=== PATIENT | female | born 1945 | race African-American/Black ===

== ENCOUNTER 2018-06-07 21:28 | Emergency (ER) | payer OTHER ==
[2018-06-07 21:39] VITALS: BP 166/83; PULSE 99; TEMP 98; BMI 19.3
[2018-06-07] MEDS ORDERED: DIPHTH,PERTUSS(ACELL),TET 0.5 ML DISP.SYRIN IM ONE (21:39)
--- NOTE | 2018-06-07 21:46 | PDOC ---
Rapid Medical Evaluation Chief Complaint: Bite Time Seen by Provider: 06/07/18 21:38 Medical Evaluation: Allergies Allergy/AdvReac Type Severity Reaction Status Date / Time No Known Allergies Allergy Verified 06/07/18 21:39 Vital Signs Temp Pulse Resp BP Pulse Ox 98.0 F 99 H 18 166/83 96 06/07/18 21:31 06/07/18 21:31 06/07/18 21:31 06/07/18 21:31 06/07/18 21:31 06/07/18 21:41 I have performed a brief in-person evaluation of this patient. The patient presents with a chief complaint of: Was attacked by unknown dog on street who was being walked, but unable to locate. STates washed wound and came for evaluation. Pertinent physical exam findings: Puncture wound to right forearm , mild contusion/ FROM to arm and hand I have ordered the following: Boostrix/ Rabies Protocol needs initiated The patient will proceed to the ED for further evaluation 06/07/18 21:44 Discharge Disposition - Diagnosis Dog bite of arm - Referrals - Patient Instructions - Post Discharge Activity
[2018-06-07] MEDS ORDERED: RABIES IMMUNE GLOBULIN 300 UNITS/1 ML VIAL IM ONE (21:51)
[2018-06-07] MEDS ORDERED: RABIES VACCINE (PCEC)/PF 2.5 UNIT/VIAL IM ONE (21:51)
[2018-06-07] MEDS ORDERED: RABIES IMMUNE GLOBULIN 300 UNITS/1 ML VIAL ONE (22:01)
--- NOTE | 2018-06-07 22:21 | PDOC ---
History of Present Illness - General Chief Complaint: Bite Stated Complaint: DOG BITE Time Seen by Provider: 06/07/18 21:38 - History of Present Illness Initial Comments: 72-year-old female without comorbidities past history of colon cancer status post colectomy number of years ago presents for evaluation after a dog bite by an unknown dog in her left upper extremity. 06/07/18 22:13 Past History - Past Medical History Allergies/Adverse Reactions: Allergies Allergy/AdvReac Type Severity Reaction Status Date / Time No Known Allergies Allergy Verified 06/07/18 21:39 Home Medications: Ambulatory Orders NK [No Known Home Medication] 06/07/18 COPD: No - Suicide/Smoking/Psychosocial Hx Smoking History: Never smoked Review of Systems - Review of Systems Musculoskeletal: Yes: See HPI *Physical Exam - Vital Signs Last Vital Signs Temp Pulse Resp BP Pulse Ox 98.0 F 99 H 18 166/83 96 06/07/18 21:31 06/07/18 21:31 06/07/18 21:31 06/07/18 21:31 06/07/18 21:31 - Physical Exam Comments: HEAD: NC/AT EYES: Conjuntiva clear MS: Full ROM in all joints without edema NEUROLOGIC: No gross sensory or motor deficits, NVID SKIN: Normal color and temperature no lesions or rashes There is a small subcentimeter puncture danna on the volar aspect of the forearm without gross sensorimotor deficits and normal surrounding skin color and temperature 06/07/18 22:14 ED Treatment Course - Medications Given in the ED: ED Medications Discontinued Medications Generic Name Dose Route Start Last Admin Trade Name Freq PRN Reason Stop Dose Admin Diphtheria/Tetanus/Acell Pertussis 0.5 ml 06/07/18 21:39 06/07/18 21:57 Boostrix - IM 06/07/18 21:40 0.5 ml .ONCE ONE Administration Rabies Vaccine 2.5 unit 06/07/18 21:51 06/07/18 21:58 Rabavert Rabies Vaccine IM 06/07/18 21:52 2.5 unit .ONCE ONE Administration Medical Decision Making - Medical Decision Making Was clean with soap and water copiously washed and a dry sterile dressing was placed 06/07/18 22:21 *DC/Admit/Observation/Transfer Diagnosis at time of Disposition: Dog bite of arm - Discharge Dispostion Disposition: HOME Condition at time of disposition: Stable Decision to Admit order: No - Referrals Referrals: Jordan Fernandez MD [Staff Physician] - - Patient Instructions Printed Discharge Instructions: DI for Animal Bites Additional Instructions: He must return to the emergency room in 3 days, 7 days and again in 14 days for rabies vaccinations. The dates are as follows: 06/10/18 06/14/18 06/21/18 Also follow up with your primary care doctore in 1-2 days for futher evaluation and treatment options. - Post Discharge Activity
== END 2018-06-07 23:10 | disposition home or self-care (01) ==
LOC: JERFT 21:28
PROC: 3E0234Z Introduction of Serum, Toxoid and Vaccine into Muscle, Percutaneous Approach (ICD-10-PCS; principal; 2018-06-07)
PROC: 3E0234Z Introduction of Serum, Toxoid and Vaccine into Muscle, Percutaneous Approach (ICD-10-PCS; 2018-06-07)
PROC: 3E0234Z Introduction of Serum, Toxoid and Vaccine into Muscle, Percutaneous Approach (ICD-10-PCS; 2018-06-07)
DX: S51.851A Open bite of right forearm, initial encounter (principal); W54.0XXA Bitten by dog, initial encounter; Y93.89 Activity, other specified; Y92.89 Other specified places as the place of occurrence of the external cause; Y99.8 Other external cause status
CPT/HCPCS: 90375; 90471; 90675; 90715; 96372; 99281-25

== ENCOUNTER 2018-06-10 13:09 | Emergency (ER) | payer OTHER ==
[2018-06-10 13:22] VITALS: BP 140/72; PULSE 66; TEMP 98.7; BMI 18.6
[2018-06-10] MEDS ORDERED: RABIES VACCINE (PCEC)/PF 2.5 UNIT/VIAL IM ONE (14:16)
--- NOTE | 2018-06-10 14:28 | PDOC ---
History of Present Illness - General Chief Complaint: Revisit,Rabies Injection Stated Complaint: REVISIT, DOG BITE Time Seen by Provider: 06/10/18 13:40 History Source: Patient Exam Limitations: No Limitations - History of Present Illness Initial Comments: 06/10/18 14:26 pt here for second rabies vaccine. see here 06/07 for dog bite right forearm. pt states the bite is healing well no redness or drainage. Past History - Past Medical History Allergies/Adverse Reactions: Allergies Allergy/AdvReac Type Severity Reaction Status Date / Time No Known Allergies Allergy Verified 06/10/18 13:16 Home Medications: Ambulatory Orders Amox-Tr/K Cl [Augmentin - 875Mg Tablet] 1 tab PO BID #20 tablet 06/07/18 COPD: No - Suicide/Smoking/Psychosocial Hx Smoking History: Never smoked Information on smoking cessation initiated: No Hx Alcohol Use: No Drug/Substance Use Hx: No Substance Use Type: None *Physical Exam - Vital Signs Last Vital Signs Temp Pulse Resp BP Pulse Ox 98.7 F 66 18 140/72 100 06/10/18 13:11 06/10/18 13:11 06/10/18 13:11 06/10/18 13:11 06/10/18 13:11 - Physical Exam General Appearance: Yes: Nourished, Appropriately Dressed HEENT: positive: EOMI, CHECO Musculoskeletal: positive: Normal Inspection Extremity: positive: Normal Capillary Refill, Normal Inspection, Normal Range of Motion, Other (right forearm with (2) [id number] wounds superficial bites, healing well no redness or drainage ) ED Treatment Course - Medications Given in the ED: ED Medications Discontinued Medications Generic Name Dose Route Start Last Admin Trade Name Lila PRN Reason Stop Dose Admin Rabies Vaccine 2.5 unit 06/10/18 14:16 06/10/18 14:23 Rabavert Rabies Vaccine IM 06/10/18 14:17 2.5 unit .ONCE ONE Administration Medical Decision Making - Medical Decision Making 06/10/18 14:37 cc: dog bite wound to right forearm wound clean and dry will give second rabies vaccine dc inst discussed all questions asked and answered *DC/Admit/Observation/Transfer Diagnosis at time of Disposition: Rabies, need for prophylactic vaccination against - Discharge Dispostion Disposition: HOME Condition at time of disposition: Good - Referrals - Patient Instructions Printed Discharge Instructions: DI for Rabies Vaccine Additional Instructions: wash wound twice a day with antibacterial soap and water apply bacitracin once a day to the bite return as scheduled for rabies vaccine - Post Discharge Activity
== END 2018-06-10 14:45 | disposition home or self-care (01) ==
LOC: JERFT 13:09
PROC: 3E0234Z Introduction of Serum, Toxoid and Vaccine into Muscle, Percutaneous Approach (ICD-10-PCS; principal; 2018-06-10)
DX: Z20.3 Contact with and (suspected) exposure to rabies (principal); S51.851D Open bite of right forearm, subsequent encounter; W54.0XXD Bitten by dog, subsequent encounter
CPT/HCPCS: 90675; 99281-25

== ENCOUNTER 2018-10-07 07:01 | Observation (INO) | payer OTHER ==
--- NOTE | 2018-10-07 07:18 | PDOC ---
History of Present Illness - General Chief Complaint: Syncope/Near Syncope Stated Complaint: SYNCOPE Time Seen by Provider: 10/07/18 07:14 - History of Present Illness Initial Comments: 10/07/18 07:17 72 yo F with h/o colon ca. s/p colectomy (2001) BIBEMS w/ syncope. 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 States that she was on ground for minutes, uinconsious and crawled to couch and was able to ambulate afterwords. Patient states that she awoke in puddle of urine, and felt extremely weak following event. Denies h/o similar presentation or prior fainting spell. States that she has had frequent BM within past 24 hours, with absent BPR. Also endorses 1 month of irritable bowel/GI upset. Denies abdominal pain, but reports increased bowel activity. Evaluated by GI one month LINK TRAINER, and told she had consitpation. Has been taking Colace. Last colonscopy x 2 years ago, unremarkable. Does not recall head trauma, denies neck pain, back pain. Denies AC. Patient lives at home alone. Patient denies TAYLOR, vision change, palpitations, cough, wheezing, orthopena, PND , leg swelling/pain, N/V, F,C, CP, SOB, urinary complaints, hematuria, BPR, abdominal pain, diarrhea, constipation, sensory changes. PMHx: as noted above. Denies h/o ACS/IA, stent placement, CABG, abnml stress testing. ROS: as noted SHx: Denies Etoh, IVDA, tobacco use Allergies: NKDA Past History - Past Medical History Allergies/Adverse Reactions: Allergies Allergy/AdvReac Type Severity Reaction Status Date / Time No Known Allergies Allergy Verified 10/07/18 07:07 Home Medications: Ambulatory Orders NK [No Known Home Medication] 10/07/18 COPD: No - Suicide/Smoking/Psychosocial Hx Smoking History: Never smoked Have you smoked in the past 12 months: No Information on smoking cessation initiated: No Hx Alcohol Use: No Drug/Substance Use Hx: No Substance Use Type: None Review of Systems - Review of Systems Comments:: 10/07/18 07:18 GENERAL/CONSTITUTIONAL: No fever or chills. No weakness. HEAD, EYES, EARS, NOSE AND THROAT: No change in vision. No ear pain or discharge. No sore throat. CARDIOVASCULAR: No chest pain or shortness of breath RESPIRATORY: No cough, wheezing, or hemoptysis. GASTROINTESTINAL: No nausea, vomiting, diarrhea or constipation. GENITOURINARY: No dysuria, frequency, or change in urination. MUSCULOSKELETAL: No joint or muscle swelling or pain. No neck or back pain. SKIN: No rash NEUROLOGIC: + Lightheadedness. No headache, vertigo, or change in strength/ sensation. ENDOCRINE: No increased thirst. No abnormal weight change HEMATOLOGIC/LYMPHATIC: No anemia, easy bleeding, or history of blood clots. ALLERGIC/IMMUNOLOGIC: No hives or skin allergy. *Physical Exam - Vital Signs Last Vital Signs Temp Pulse Resp BP Pulse Ox 98.2 F 69 16 117/73 99 10/07/18 07:04 10/07/18 07:04 10/07/18 07:04 10/07/18 07:04 10/07/18 07:04 - Physical Exam Comments: 10/07/18 07:18 GENERAL: Awake, alert, and fully oriented, in no acute distress HEAD: No signs of trauma, normocephalic, atraumatic EYES: PERRLA, EOMI, sclera anicteric, conjunctiva clear ENT: + Dry mucous membranes. Auricles normal inspection, hearing grossly normal , nares patent, oropharynx clear without exudates. NECK: Normal ROM, supple, no lymphadenopathy, JVD, or masses LUNGS: No distress, speaks full sentences, clear to auscultation bilaterally HEART: Regular rate and rhythm, normal S1 and S2, no murmurs, rubs or gallops, peripheral pulses normal and equal bilaterally. ABDOMEN: Soft, nontender, normoactive bowel sounds. No guarding, no rebound. No masses EXTREMITIES : Normal inspection, Normal range of motion, no edema. No clubbing or cyanosis. NEUROLOGICAL: Cranial nerves II through XII grossly intact. Normal speech, normal gait, no focal sensorimotor deficits. Nml YANY. SKIN: Pale appearing. Warm, Dry, normal turgor, no rashes or lesions noted Moderate Sedation - Procedure Monitoring Vital Signs: Procedure Monitoring Vital Signs Temperature 98.2 F 10/07/18 07:04 Pulse Rate 69 10/07/18 07:04 Respiratory Rate 16 10/07/18 07:04 Blood Pressure 117/73 10/07/18 07:04 O2 Sat by Pulse Oximetry (%) 99 10/07/18 07:04 Heart Score/ECG Review - History History: Slightly suspicious - Electrocardiogram EKG: Normal - Age Age: >/= 65 - Risk Factors Risk Factors Heart Score: Yes Positive family hx of cardiac disease Based on the list above the patient has:: 1-2 risk factors - Troponin Troponin: </= normal limit - Score Heart Score - Total: 3 ED Treatment Course - LABORATORY CBC & Chemistry Diagram: 10/07/18 07:35 10/07/18 07:35 Medical Decision Making - Medical Decision Making 10/07/18 07:58 72 yo F with h/o colon ca. 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 Vitals wnl, AF , A&Ox3, GCS 15. Physical exam notable for pale appearing, and dry mucous membranes. CTH r/o hemorrhage, hemaotma, skull fracture, mass effect. Possible syncope vs. seizure/postictal state. Will assess for VBI/TIA, cardiac dysarrythmias, dehydration, hypoglycemia, electrolyte abnml, metabolic and toxic derangements, acid-base disturbances, infection, malignancy. Will provide adequate IV fluid resuscitation. 10/07/18 08:01 ED Course: CTH, NS 1 L 10/07/18 08:03 10/07/18 08:30 EKG: NSR with absent LEAH, STD. Normal interval duration and axis. Nml R wave progression. Neg Q waves. 10/07/18 08:53 CTH: Unremarkable CBC,CMP: Unremarkable Trop: Neg 10/07/18 11:13 Patient endorsed to Medicine. Admitted to medicine/Dr. Simmons. *DC/Admit/Observation/Transfer Diagnosis at time of Disposition: Syncope and collapse - Discharge Dispostion Condition at time of disposition: Stable Decision to Admit order: Yes - Referrals - Patient Instructions Printed Discharge Instructions: DI for Syncope in Adults (Fainting) - Post Discharge Activity
--- NOTE | 2018-10-07 07:50 | PDOC ---
Attending Attestation - Resident Resident Name: Jayson Cobb - ED Attending Attestation I have performed the following: I have examined & evaluated the patient, The case was reviewed & discussed with the resident, I agree w/resident's findings & plan, Exceptions are as noted - HPI HPI: 10/07/18 09:48 Ms Curtis is a 73 yo F who presents to the ER with a complaint of syncopal event Pt has a history only significant for colon cancer s/p colectomy (2001) BIBEMS s /p syncopal episode. Patient reports walking to the bathroom just prior to arrival in the ER. She felt a sudden onset of weakness in both knees, she fell to the ground. She denies head trauma. No LOC, she was on the ground for several minutes but was able to get herself up. (+) urine on hte ground. Following this, she felt very weak. She called EMS (cleaned home prior to EMS arrival). Of note, pt has had 1 month of loose stools, no abdominal pain No nausea, no vomiting No chest pain, no palpitations no headache No prior episodes like this - Physicial Exam PE: 10/07/18 09:56 GENERAL: The patient is in no acute distress. ENT: Ears normal, nares patent, oropharynx clear without exudates. Moist mucous membranes. NECK: Normal range of motion, supple, no nuchal rigidity LUNGS: Breath sounds equal, clear to auscultation bilaterally. No wheezes, and no crackles. HEART:Regular rate and rhythm, normal S1 and S2 without murmur, rub or gallop. ABDOMEN: Soft, nontender, normoactive bowel sounds. EXTREMITIES: Normal range of motion, no edema. NEUROLOGICAL: Cranial nerves II through XII grossly intact. Normal speech. No focal neurological deficits. SKIN: Warm, Dry, normal turgor, no rashes or lesions noted. - Medical Decision Making 10/07/18 07:50 EKG - NSR rate of 66 bpm, axis nml, intervals nml, no st elevation or depression , t waves upright 10/08/18 07:48 Laboratory Tests 10/07/18 10/07/18 10/07/18 07:35 07:35 07:35 WBC 7.0 Hgb 11.9 Hct 35.6 Plt Count 179 BUN 16 Creatinine 1.1 Creatine Kinase 128 Troponin I < 0.02 CT head - no acute intracranial hemorrhage Will plan to place on observation Most likely cause of syncope is vasovagal episode/dehydration Can not rule out ACS or arrhythmia in the ER Clinical impression: syncope and collapse, initial presentation
[2018-10-07] MEDS ORDERED: SODIUM CHLORIDE 1,000 ML IV STA (07:52)
[2018-10-07 08:04] LABS: BASO % 0.3 % (0-2.0); EOS % 0.7 % (0-4.5); HEMATOCRIT 35.6 % (32.4-45.2); HEMOGLOBIN 11.9 GM/dL (10.7-15.3); LYMPH % 10.5 % (8-40); MCH 29.9 pg (25.7-33.7); MCHC 33.5 g/dl (32.0-36.0); MEAN CELL VOLUME 89.1 fl (80-96); MEAN PLT VOLUME 8.8 fl (7.5-11.1); MONO % 6.8 % (3.8-10.2); NEUT % 81.7 % (42.8-82.8); PLATELET COUNT 179 K/MM3 (134-434); RDW 13.1 % (11.6-15.6)
[2018-10-07 08:13] LABS: ALBUMIN 3.6 g/dl (3.4-5.0); ALK PHOS 76 U/L (45-117); ANION GAP 6 MMOL/L (8-16); BILIRUBIN,TOTAL 0.6 mg/dL (0.2-1); BLOOD UREA NITROGEN 16 mg/dL (7-18); CALCIUM 8.6 mg/dL (8.5-10.1); CHLORIDE 105 mmol/L (98-107); CO2 29 mmol/L (21-32); CREATININE 1.1 mg/dL (0.55-1.3); GLUCOSE,RANDOM 102 mg/dL (74-106); POTASSIUM 3.6 mmol/L (3.5-5.1); SGOT/AST 14 U/L (15-37); SGPT/ALT 17 U/L (13-61); SODIUM 140 mmol/L (136-145)
--- NOTE | 2018-10-07 12:19 | HP ---
CHIEF COMPLAINT: Syncope PCP: Not on staff here HISTORY OF PRESENT ILLNESS: 73yo F with only history of Colon Ca s/p colectomy (2001; [facility]) who presents today with syncopal episode in her kitchen after getting up. She reports she was sitting at her kitchen table and felt hungry and decided to get a glass of milk. When she got up and walked a few feet, she reported collapsing she came to her senses about 1-2 minutes later as reported by her and found herself in urine. She was able to walk, but felt weak and came to the ER for further investigation. Pt also endorses having multiple soft BM's normal in colour, without blood, and without mucus totalling around 3-4 episodes within the past 1.5 days. Pt reports also having coffee last night with some frequent urination as a result, but not drinking much water. Denies current and previous headaches, narrowing/blurry vision, n/v/f/c, sick contacts, constitutional symptoms, shortness of breath, chest pain, palpitations, abdominal pain, parasthesias, back pain, neck pain, polyuria, dysuria, hematuria, melena. Of note, pt's last colonoscopy was 2 years ago at [facility] (Dr. Lagunas) which was reportedly normal. ER course was notable for: (1) 1LNS (2) Head CT (3) ECG (see below) Recent Travel: Denies PAST MEDICAL HISTORY: Colon Ca s/p resection as above PAST SURGICAL HISTORY: Knee replacement b/l Social History: Smoking: Denies Alcohol: Denies Drugs: Denies Pt lives alone at home, normally ambulates without assistance and independent in ADLs Family History: Allergies: No Known Allergies Allergy (Verified 10/07/18 07:07) HOME MEDICATIONS: Home Medications Medication Instructions Recorded NK [No Known Home Medication] 10/07/18 REVIEW OF SYSTEMS As per HPI PHYSICAL EXAMINATION Vital Signs - 24 hr 10/07/18 10/07/18 07:04 12:10 Temperature 98.2 F Pulse Rate 69 Pulse Rate [ 60 Right] Respiratory 16 16 Rate Blood Pressure 117/73 Blood Pressure 122/55 L [Left Arm] O2 Sat by Pulse 99 100 Oximetry (%) GENERAL: NAD, awake, alert, and fully oriented HEENT: NC/AT, EOMI, [place], facial pallor noted, [id number] mucosa NECK: Soft, no TTP. LUNGS: CTA bilaterally. No wheezes, and no crackles. No accessory muscle use. 99 % on RA HEART: RRR, normal S1 and S2 without murmurs ABDOMEN: Soft, nondistended, nontender, normoactive BS, no guarding, no masses, no hepatomegaly via palpation. MUSCULOSKELETAL: No CVA tenderness. UPPER EXTREMITIES: 2+ radial pulses b/l, warm, ROM intact, No peripheral edema. LOWER EXTREMITIES: 2+ DP pulses, warm, well-perfused. No calf tenderness. No peripheral edema. NEUROLOGICAL: CrNs II-XII intact. Strength 5/5 in upper extremities including shoulder shrug. Strength 5/5 in lower extremity flexion/extension of the knee, dorsal/plantar flexion. Normal speech. Standing stable, stable gait noted ( walked 5 paces back and forth with me). PSYCHIATRIC: Cooperative. Good eye contact. Appropriate mood and affect. SKIN: Warm, dry, no rashes or lesions noted Laboratory Results 10/07/18 10/07/18 10/07/18 07:35 07:35 07:35 WBC 7.0 RBC 4.00 Hgb 11.9 Hct 35.6 MCV 89.1 MCH 29.9 MCHC 33.5 RDW 13.1 Plt Count 179 MPV 8.8 Absolute Neuts (auto) 5.8 Neutrophils % 81.7 Lymphocytes % 10.5 Monocytes % 6.8 Eosinophils % 0.7 Basophils % 0.3 Nucleated RBC % 0 Sodium 140 Potassium 3.6 Chloride 105 Carbon Dioxide 29 Anion Gap 6 L BUN 16 Creatinine 1.1 Creat Clearance w eGFR 48.82 Random Glucose 102 Calcium 8.6 Total Bilirubin 0.6 AST 14 L ALT 17 Alkaline Phosphatase 76 Creatine Kinase 128 Troponin I < 0.02 Total Protein 7.0 Albumin 3.6 ECG - NSR @66bpm, normal axis, proper R-wave progression, non-pathologic J- point LEAH in V2, QTc 421ms, RI 180ms ASSESSMENT/PLAN: Syncopal episode Frequent bowel movements History of Colon Ca --Unwitnessed syncopal episode; Head CT negative for acute pathology in ED --Likely 2/2 to dehydration, however will need to r/o possible seizure activity given incontinence --Orthostatic VS now; if negative may progress to EEG --1LNS bolus after orthostatic vital signs --Given frequent BMs, ordered stool cultures --Low suspicion for C. diff given soft nature, nonfoul smelling, and no recent ABX use FEN: Fluids: Bolus as needed Electrolyte abnormalities: None; monitor K due to low normal and frequent BM' s Nutrition: Regular Diet PPX: DVT - Due to previous colon carcinoma will order Lovenox 40mg SQ daily GI - Not indicated Dispo: Telemetry observation for syncope Case discussed with Dr. Iris Martinez, DO - IM PGY-2
--- NOTE | 2018-10-07 14:01 | EKG ---
Test Reason : Blood Pressure : / mmHG Vent. Rate : 066 BPM Atrial Rate : 066 BPM P-R Int : 180 ms QRS Dur : 088 ms QT Int : 402 ms P-R-T Axes : 052 038 028 degrees QTc Int : 421 ms POOR DATA QUALITY, INTERPRETATION MAY BE ADVERSELY AFFECTED NORMAL SINUS RHYTHM NORMAL ECG NO PREVIOUS ECGS AVAILABLE Confirmed by JOAQUIN DUARTE MD ([id number]) on 10/07/2018 2:01:23 PM Referred By: Confirmed By:JOAQUIN DUARTE MD
--- NOTE | 2018-10-07 15:25 | PN ---
Teaching Attending Note Name of Resident: Justin Martinez ATTENDING PHYSICIAN STATEMENT I saw and evaluated the patient. I reviewed the resident's note and discussed the case with the resident. I agree with the resident's findings and plan as documented. SUBJECTIVE: CC: syncope HPI: 73 y/o lady with h/o Colon cancer s/p colectomy in 2001 who presented after a syncopal episode. She got up and walked to the kitchen sink to grab water when she felt very weak and fell. she reports LOC. she hit her R side but not her head . she woke up after 2 min, she thinks. she was able to recognize her surrounding right away. she reports no palpitations, CP , SOB, before or after the incident. she noticed her pants were wet. no tongue biting or pain. she never had any syncope or dizziness or seizures before. she reports increased stooling but normal consistency . she also reports increase in her coffee intake, with frequent urination and poor oral hydration. lives alone, independent . received a liter of IVF in ER OBJECTIVE: NAd , awake, alert, oriented x 3. HEENT: no facial droop, MMM. CV: RRR, no MRG lungs : CTAB Abd:, NT, Nd , NL BS. Ext : no edema or erythema over LE or UE. ulnar deviation of her MTP joints Neuro: EOMI, round pupils reactive to light and equal. no facial droop. otngue at mid line . strength 5/5 in upper and lower extremities proximally and distally . sensation to light touch NL. reflexes 2+ biceps and knee jerk bilaterally MS: No tenderness over any of her joints in hands, elbows, shoulders, hips, knees, ankles or over the long bones. ASSESSMENT AND PLAN: 73 y/o lady with h/o Colon cancer s/p colectomy in 2001, ? RA who presented after a syncopal episode. 1- Syncope: most likely due to orthostatic hypotension due to volume depletion form over diuresis with increased coffee intake . can't r/o arrhythmias. despite urinary incontinence, seizure is less likely. I do not suspect stroke, her neuro exam is normal - check orthostatic VS, although she received IVF in ER - will give IVF regardless of her Ortho VS - if ortho VS are neg , will check EEG - tele monitoring to r/o arrhythmias - no diarrhea. no stool studies needed . 2- H/o arthritis, she thinks it is RA, but not on any treatment 3- H/o colon cancer, s/p resection. had colonoscopy last year with no recurrence reported . dispo : observe
[2018-10-07] MEDS ORDERED: SODIUM CHLORIDE 1,000 ML IV SCH (15:30)
[2018-10-07 16:05] VITALS: BMI 20.5
[2018-10-08] MEDS ORDERED: ENOXAPARIN NA (PORCINE) 40 MG/0.4 ML DISP.SYRIN SQ SCH (10:00)
[2018-10-08 10:21] VITALS: BP 124/74; PULSE 67; TEMP 98.2
--- NOTE | 2018-10-08 13:25 | PN ---
Teaching Attending Note Name of Resident: Karime Garay ATTENDING PHYSICIAN STATEMENT I saw and evaluated the patient. I reviewed the resident's note and discussed the case with the resident. I agree with the resident's findings and plan as documented. SUBJECTIVE: No fever or chills. No TAYLOR , nO visual changes, no weakness, no dizziness OBJECTIVE: NAd , awake, alert, oriented x 3. HEENT: no facial droop, MMM. CV: RRR, no MRG lungs : CTAB Abd:, NT, Nd , NL BS. Ext : no edema or erythema over LE or UE. ulnar deviation of her MTP joints ASSESSMENT AND PLAN: 73 y/o lady with h/o Colon cancer s/p colectomy in 2001, ? RA who presented after a syncopal episode. 1- Syncope: most likely due to orthostatic hypotension due to volume depletion form over diuresis with increased coffee intake . - received IVF - no recurrence of incident - will refer to card for possible need to hlter or prolonged cardiac monitoring - offered patient neuro follow up as she might need on urgent MRi of the brain given her cancer history, but she declined. _EEG was not done. at this point it will not be helpful. refused neuro f/u - advised to cut down on caffeine use. and oral hydration 2- H/o arthritis, she thinks it is RA, but not on any treatment 3- H/o colon cancer, s/p resection. dispo :dc home
--- NOTE | 2018-10-08 13:55 | DS ---
Physical Exam: SUBJECTIVE: Patient seen and examined OBJECTIVE: Vital Signs Period Temp Pulse Resp BP Sys/Mackenzie Pulse Ox Last 24 Hr 97.1 F-98.2 F 58-72 16-20 104-124/62-78 98-100 PHYSICAL EXAM GENERAL: The patient is awake, alert, and fully oriented, in no acute distress. HEAD: Normal with no signs of trauma. EYES: PERRL, extraocular movements intact, sclera anicteric, conjunctiva clear. ENT: Ears normal, nares patent, oropharynx clear without exudates, moist mucous membranes. NECK: Trachea midline, full range of motion, supple. LUNGS: Breath sounds equal, clear to auscultation bilaterally, no wheezes, no crackles, no accessory muscle use. HEART: Regular rate and rhythm, S1, S2 without murmur, rub or gallop. ABDOMEN: Soft, nontender, nondistended, normoactive bowel sounds, no guarding, no rebound, no hepatosplenomegaly, no masses. EXTREMITIES: 2+ pulses, warm, well-perfused, no edema. NEUROLOGICAL: Cranial nerves II through XII grossly intact. Normal speech, gait not observed. PSYCH: Normal mood, normal affect. SKIN: Warm, dry, normal turgor, no rashes or lesions noted. LABS Head CT: negative for any intracranial pathology HOSPITAL COURSE: Date of Admission:10/07/18 73 y/o female with PMH of colon ca s/p colectomy in 2001 presented to the ED after having a syncopal episode at home. she was in her usual state of health when she was waking to the kitchen. fell and passed out and she woke up 1-2 mins later surrounded by urine. this has never happened to her, she had no prodormal symptoms leading up to the event dneies CP/SOB/N/V . so she came to the ed- negative for orthostatic head CT was negative, labs wnl, she was monitored on tele with no cardiac events. she was d/c'd home with with carido referral . she refused to neurologist/ Date of Discharge: 10/08/18 Minutes to complete discharge: 39 Discharge Summary Reason For Visit: SYNCOPE AND COLLAPSE Condition: Improved - Instructions Diet, Activity, Other Instructions: You came to the emergency room after passing out at home. We did imaging of jl head which was negative for any bleeds and we also had you a monitored cardiac floor while you were here to monitor your hearts activity. Please resume all of your home medications Please follow up with your primary care physician within one week We are referring you to a coater hand, Dr. Thomas with whom we would like you to follow up with as you might need a prolonged mcardiac moitoring *if you begin to experience any chest pains, falls, dizziness, trouble breathing please return to the emergency room immediately You might need MRI of your brain Referrals: Austin Jin [Other] Yonis Thomas MD [Staff Physician] - 1 Week Disposition: HOME - Home Medications Comprehensive Discharge Medication List: Ambulatory Orders NK [No Known Home Medication] 10/07/18 Problem List - Problems (1) Syncope and collapse Code(s): R55 - SYNCOPE AND COLLAPSE This patient is new to me today: Yes Date on this admission: 10/08/18 Emergency Visit: Yes ED Registration Date: 10/07/18 Care time: The patient presented to the Emergency Department on the above date and was hospitalized for further evaluation of their emergent condition. Critical Care patient: No - Discharge Referral Referred to [facility] Med [facility] No
== END 2018-10-08 14:45 | disposition home or self-care (01) ==
LOC: EDBD 07:01 → JER 07:01 → JERBED 10:32 → J4S 13:39
PROVIDERS: ADMIT Internal Medicine; ATTEND Internal Medicine
PROC: 3E0337Z Introduction of Electrolytic and Water Balance Substance into Peripheral Vein, Percutaneous Approach (ICD-10-PCS; principal; 2018-10-07)
DX: R55 Syncope and collapse (principal); R19.4 Change in bowel habit; Z85.038 Personal history of other malignant neoplasm of large intestine; Z90.49 Acquired absence of other specified parts of digestive tract
CPT/HCPCS: 36415; 70450-TC; 80053; 82550; 84484; 85025; 87086; 93005; 93010; 95816; 96360; 99282-25; G0378; J7030